=== PATIENT | female | born 1990 | race Asian ===

== ENCOUNTER 2017-12-18 06:50 | Inpatient (IN) | payer SELFPAY ==
[~2017-12-18] VITALS: Ht 160 cm; Wt 64.9 kg
[2017-12-18] MEDS ORDERED: LR 1,000 ML IV SCH (07:24)
[2017-12-18] MEDS ORDERED: OXYTOCIN/0.9 % SODIUM CHLORIDE 1,000 ML IV SCH (07:24)
[2017-12-18] MEDS ORDERED: LR 500 ML IV ONE (07:24)
[2017-12-18] MEDS ORDERED: NALBUPHINE HCL 10 MG/ML AMP IVP PRN (07:30)
[2017-12-18] MEDS ORDERED: TERBUTALINE SULFATE 1 MG/ML VIAL SUBCUT ONE (07:30)
[2017-12-18] MEDS ORDERED: NALBUPHINE HCL 10 MG/ML AMP IM PRN (07:30)
[2017-12-18 07:50] VITALS: BP_SYST 108
[2017-12-18] MEDS ORDERED: OXYTOCIN 10 UNIT/ML VIAL ONE (07:53)
[2017-12-18 07:59] LABS: HEMATOCRIT 32.5 % (36-48); MEAN CORPUSCULAR HEMOGLOBIN 30 pg (27-31); MEAN CORPUSCULAR HGB CONC 34 % (32-36); MEAN CORPUSCULAR VOLUME 89 fL (79.0-98.0); PLATELET COUNT (AUTO) 126 K/uL (130-430); RED BLOOD CELL COUNT(AUTO) 3.64 MIL/uL (4.2-6.2); RED CELL DISTRIBUTION WIDTH 18.6 % (9.0-15.0); WHITE BLOOD COUNT (AUTO) 6.1 K/uL (4.8-10.8)
[2017-12-18 08:43] LABS: BASOPHILS % (MANUAL) 0 % (0-2); EOSINOPHILS % (MANUAL) 0 % (0-7); LYMPHOCYTES % (MANUAL) 11 % (20-46); MONOCYTES % (MANUAL) 4 % (0-11)
[2017-12-18 10:09] VITALS: BP_SYST 96
[2017-12-18] MEDS ORDERED: OXYTOCIN/0.9 % SODIUM CHLORIDE 1,000 ML IV ONE (18:17)
[2017-12-18] MEDS ORDERED: LANOLIN 7 GM OINT. TP PRN (18:30)
[2017-12-18] MEDS ORDERED: WITCH HAZEL LEAF 1 MED.PAD MED.PAD TP PRN (18:30)
[2017-12-18] MEDS ORDERED: DOCUSATE SODIUM 100 MG CAPSULE PO PRN (18:30)
[2017-12-18] MEDS ORDERED: DERMOPLAST SPRAY TP PRN (18:30)
[2017-12-19] MEDS: IBUPROFEN 600 MG TABLET PO SCH ×2 (06:00)
[2017-12-19] MEDS ORDERED: LIDOCAINE PF 1% 30ML(POUR BTL) INJ ONE (10:38)
== END 2017-12-20 15:30 | disposition home or self-care (01) | DRG 775 ==
LOC: SPU 06:50
PROVIDERS: ADMIT Obstetrics & Gynecology; ATTEND Obstetrics & Gynecology
PROC: 10E0XZZ Delivery of Products of Conception, External Approach (ICD-10-PCS; principal; 2017-12-18)
PROC: 0W8NXZZ Division of Female Perineum, External Approach (ICD-10-PCS; 2017-12-18)
DX: O42.92 Full-term premature rupture of membranes, unspecified as to length of time between rupture and onset of labor (principal); Z3A.39 39 weeks gestation of pregnancy; Z37.0 Single live birth
CPT/HCPCS: 36415; 81002-TC; 85007; 85027; 86886; 86900; 86901; J2001; J2590; J7120

== ENCOUNTER 2017-12-26 01:42 | Emergency (ER) | payer SELFPAY ==
[~2017-12-26] VITALS: Ht 160 cm; Wt 54.4 kg
--- NOTE | 2017-12-26 01:58 | NUR ---
Patient to ER bed 07 to gown for evaluation. Side rails up. Report given to Justice HODGE.
[2017-12-26 02:00] VITALS: BP_SYST 98
--- NOTE | 2017-12-26 02:05 | NUR ---
Pt AAOx4 ambulated into ED c/o lower abdominal cramping 3/10 and excessive vaginal bleeding starting tonight at 2300. Pt hx of vaginal delivery x 8 days ago and has had expected normal vaginal bleeding which stopped 2 days ago. Pt is concerned of the return of vaginal bleeding tonight. No other injuries/complaints per pt/noted. Family at bedside. Skin pink dry and warm, breathing even and unlabored. Will continue to monitor.
--- NOTE | 2017-12-26 02:23 | NUR ---
ER Dr. Solis at bedside examining patient.
[2017-12-26] MEDS ORDERED: NACL 0.9% 1,000 ML IV ONE (02:30)
[2017-12-26 02:35] LABS: BILIRUBIN,URINE NEGATIVE (NEGATIVE); BLOOD, URINE 3+ (NEGATIVE); CLARITY/URINE CLOUDY (CLEAR); COLOR,URINE RED (YELLOW); GLUCOSE,URINE NEGATIVE (NEGATIVE); KETONES,URINE NEGATIVE (NEGATIVE); LEUKOCYTE ESTERASE ,URINE TRACE (NEGATIVE); NITRITE, URINE NEGATIVE (NEGATIVE); PH,URINE 6.5 (5.0-8.0); PROTEIN URINE NEGATIVE (NEGATIVE); UROBILINOGEN,URINE 0.2 (0.2-1.0)
[2017-12-26 02:57] LABS: BACTERIA,URINE FEW /HPF (None Seen); RBC,URINE >100 /HPF (0-3)
[2017-12-26 02:58] LABS: MUCUS,URINE None Seen /LPF (None Seen); URINE AMORPHOUS URATE 1+ /HPF (None Seen)
[2017-12-26 03:08] LABS: RED BLOOD CELL COUNT(AUTO) 3.55 MIL/uL (4.2-6.2); RED CELL DISTRIBUTION WIDTH 17.9 % (9.0-15.0)
[2017-12-26 03:26] LABS: BASOPHILS % (AUTO) 0.4 % (0.0-2.0); EOSINOPHILS # (AUTO) 0.2 K/uL (0.0-0.4); EOSINOPHILS % (AUTO) 1.8 % (0.0-4.0); HEMATOCRIT 31.8 % (36-48); HEMOGLOBIN 10.3 g/dL (12.0-16.0); LYMPHOCYTES # (AUTO) 1.2 K/uL (1.0-5.5); LYMPHOCYTES % (AUTO) 11.2 % (20.5-51.5); MEAN CORPUSCULAR HEMOGLOBIN 29 pg (27-31); MEAN CORPUSCULAR HGB CONC 32 % (32-36); MEAN CORPUSCULAR VOLUME 90 fL (79.0-98.0); MONOCYTES # (AUTO) 0.4 K/uL (0.0-1.0); MONOCYTES % (AUTO) 3.4 % (1.7-9.3); NEUTROPHILS # (AUTO) 8.6 K/uL (1.8-7.7); NEUTROPHILS % (AUTO) 83.2 % (40.0-70.0); PLATELET COUNT (AUTO) 261 K/uL (130-430); WHITE BLOOD COUNT (AUTO) 10.4 K/uL (4.8-10.8)
[2017-12-26 03:28] LABS: CALCIUM 8.9 mg/dL (8.4-11.0); CREATININE 0.64 mg/dL (0.55-1.30)
[2017-12-26 03:33] LABS: ALBUMIN 2.9 g/dL (3.4-4.8); TOTAL BILIRUBIN 0.2 mg/dL (0.0-1.0)
[2017-12-26 03:44] LABS: INR 0.9 (0.8-1.2); PROTHROMBIN TIME 9.3 SECS (9.5-12.5)
[2017-12-26 04:50] VITALS: BP_SYST 100
--- NOTE | 2017-12-26 04:50 | NUR ---
Patient given written and verbal discharge instructions and verbalizes understanding. Ishaan Solis MD discussed with patient the results and treatment provided. Patient in stable condition. ID arm band removed. IV catheter removed intact and dressing applied, no active bleeding. Rx of methylorgonovine given. Patient educated on pain management and to follow up with PMD. Pain Scale . Opportunity for questions provided and answered. Medication side effect fact sheet provided.
== END 2017-12-26 04:50 | disposition home or self-care (01) ==
LOC: SED 01:42
DX: O72.1 Other immediate postpartum hemorrhage (principal)
CPT/HCPCS: 36415; 76830; 76856; 80053; 81000; 81025; 85025; 85610; 85730; 86886; 86900; 86901; 87086; 96360; 99285; J7030